=== PATIENT | male | born 1995 | race Caucasian/White ===

== ENCOUNTER 2017-04-12 15:27 | Emergency (ER) | payer OTHER ==
[2017-04-12 15:47] VITALS: BP 115/60
[2017-04-12] MEDS ORDERED: Lidocaine 2% W/EPI 1:100,000* 20 ML MDV INJ ONE (15:55)
--- NOTE | 2017-04-12 16:44 | UC ---
Laceration HPI - HPI Summary HPI Summary: Patient presents with a laceration above the left eyebrow that occurred while playing rugby. He collided with another player. Denies headache, LOC, neck pain , nausea, vomiting, or weakness of extremities. Report no other concerns at this visit. - History Of Current Complaint Chief Complaint: UCLaceration Stated Complaint: HEAD LACERATION Time Seen by Provider: 04/12/17 15:50 Hx Obtained From: Patient Laceration Location: Eye Mechanism Of Injury: Blunt Trauma Onset/Duration: Sudden Onset, Lasting Hours Severity: Mild Aggravating Factors: Other: - touch - Allergies/Home Medications Allergies/Adverse Reactions: Allergies Allergy/AdvReac Type Severity Reaction Status Date / Time No Known Allergies Allergy Verified 04/12/17 15:47 Home Medications: Home Medications Ascorbic Acid [Vitamin C] 1,000 mg PO 04/12/17 [History] Fluticasone Propionate (Nasal) [Flonase Allergy Relief] 50 mcg NA 04/12/17 [ History] PMH/Surg Hx/FS Hx/Imm Hx Previously Healthy: Yes - Surgical History Surgical History: None - Family History Known Family History: Positive: None - Social History Occupation: Student Lives: Alone Alcohol Use: None Substance Use Type: None Smoking Status (MU): Never Smoked Tobacco Have You Smoked in the Last Year: No Review of Systems Constitutional: Negative Skin: Other - left eyebrown laceration Eyes: Negative ENT: Negative Respiratory: Negative Cardiovascular: Negative Gastrointestinal: Negative Genitourinary: Negative Motor: Negative Neurovascular: Negative Musculoskeletal: Negative Neurological: Negative Psychological: Negative All Other Systems Reviewed And Are Negative: Yes Physical Exam Triage Information Reviewed: Yes Appearance: Well-Appearing Vital Signs: Initial Vital Signs Temp 97.6 F 04/12/17 15:44 Pulse 84 04/12/17 15:44 Resp 18 04/12/17 15:44 BP 115/60 04/12/17 15:44 Pulse Ox 99 04/12/17 15:44 Eye Exam: Normal ENT Exam: Normal Neck exam: Normal Neck: Positive: 1 Respiratory Exam: Normal Cardiovascular Exam: Normal Abdominal Exam: Normal Musculoskeletal Exam: Normal Neurological Exam: Normal Psychological Exam: Normal Skin Exam: Normal, Other - left eyebrow laceration 1.5 cm L x 4.5 cm W x 1.0 cm D Laceration Repair - Laceration Repair 1 Description: Linear Laceration Size After Repair: Length (cm) - 1.5 cm, Width (mm) - 4.5 cm, Depth ( mm) - 1.0 cm Modified For Repair: No Type Injection: Local Anesthesia Used: 1.0% Lido Additive Used (in ml): Epi Cleansing Completed Via Routine Prep: Yes Irrigation With Pressure Irrigation Device: Yes Closure Material: Sutures - 7 simple interrupted Suture Of: Skin, SQ Suture Type: Nylon Laceration Course/Dx - Course/Dx Course Of Treatment: Patient presents s/p minor head trauma that occurred while playing rugby. He reports no LOC, neck pain or symptoms consistent with concussion. He had a laceration above the left eyebrow, and consented to suturing. The wound was irriagated with NS and hebiclenze. Time out was performed. A bloodless wounded was explored and I did not see any muscle, tendon ,bone or foreign body. The patient did not feel or sence any foreigh body. Lidocaine with epi was used to anestesize the wound, and then 7 simple interrupted sutures were placed. Minimal blood loss, patient tolerated the procedure well. Tetanus was current. Wound care instructions were reviewed and included, keep area clean and dry. Shower as normal. [facility] to resume contact sports. Reviewed signs of infection which included increased redness, pain, swelling,or drainage. If these symptoms occurr to seek immediate attention. He verbalized understanding and was in agreement with the discharge plan. - Differential Dx - Laceration/Wound Differental Diagnoses: Laceration - suture care minor head injury scalp contusion Provider Diagnoses: laceration. minor head injury. scalp contusion. suture care Discharge - Discharge Plan Condition: Stable Disposition: HOME Patient Education Materials: Care For Your Stitches (ED), Laceration (ED), Head Injury (ED), Contusion in Adults (ED) Additional Instructions: You will need to have a release from the [facility] prior to resuming contact sports. Images Head: 1 - laceration
== END 2017-04-12 16:47 | disposition home or self-care (01) ==
LOC: UCEAST 15:27
DX: S01.112A Laceration without foreign body of left eyelid and periocular area, initial encounter (principal); W45.8XXA Other foreign body or object entering through skin, initial encounter; Y93.63 Activity, rugby; Y92.9 Unspecified place or not applicable; S00.03XA Contusion of scalp, initial encounter
CPT/HCPCS: 12013; 99201; G0463